=== PATIENT | male | born 1960 | race Caucasian/White ===

== ENCOUNTER 2019-06-22 09:21 | Day surgery (SDC) | payer OTHER ==
[2019-06-15 17:58] VITALS: BMI 34.7
[2019-06-22] MEDS ORDERED: oxyCODONE HCL 5 MG TABLET PO PRN (11:05)
[2019-06-22] MEDS ORDERED: LIDOCAINE HCL 2% (20ML MULTI-DOSE VIAL) ONE (11:34)
[2019-06-22] MEDS ORDERED: PROPOFOL 20 ML ONE (12:01)
[2019-06-22] MEDS ORDERED: MIDAZOLAM HCL 2 MG/2 ML SINGLE DOSE VIAL ONE (12:01)
[2019-06-22] MEDS ORDERED: LIDOCAINE HCL 2% (50ML VIAL) INF ONE (12:10)
[2019-06-22 12:53] VITALS: TEMP 98.2
[2019-06-22 13:37] VITALS: BP 132/84; PULSE 66
--- NOTE | 2019-06-23 14:01 | OP ---
DATE OF OPERATION: 06/22/2019 PREOPERATIVE DIAGNOSIS: Right ring trigger finger. POSTOPERATIVE DIAGNOSIS: Right ring trigger finger. OPERATIVE PROCEDURE: Right ring trigger finger release. ANESTHESIA: Local with sedation. COMPLICATIONS: None. ESTIMATED BLOOD LOSS: Minimal. INDICATION FOR PROCEDURE: The patient is a 58-year-old male with the above finding, indicated for operative treatment. Risks, benefits, and alternatives were discussed with patient at length. Proper informed consent was obtained. PROCEDURE: After proper identification of patient and correct operative site, patient was brought to the operating room, placed supine on the operating table. All prominences were well padded. Right upper extremity was prepped and draped in usual sterile fashion. Tourniquet was inflated to 250 mmHg. A longitudinal incision was made over the A1 girma of the ring finger. Incision was taken sharply through the skin and blunt and sharp dissection down to the subcutaneous tissues. The A1 girma was identified and divided. No further triggering occurred. Wound was repaired with 5-0 fast-absorbing plain gut suture. Sterile dressings were applied. Patient was brought to recovery in stable condition. He tolerated the procedure well. DANNY INGRAM M.D. [id number]
== END 2019-06-22 16:00 | disposition home or self-care (01) ==
LOC: FASU 09:21
PROVIDERS: ATTEND Orthopaedic Surgery Hand Surgery
PROC: 0LN70ZZ Release Right Hand Tendon, Open Approach (ICD-10-PCS; principal; 2019-06-22 12:14)
DX: M65.341 Trigger finger, right ring finger (principal)